=== PATIENT | female | born 1945 | race Caucasian/White ===

== ENCOUNTER → 2024-05-26 09:27 | Outpatient (REF) | payer MEDICARE, OTHER, SELFPAY | LOC: HWRAD 09:27 | PROVIDERS: ATTENDING PHYSICIAN Internal Medicine Rheumatology; FAMILY PHYSICIAN Internal Medicine | DX: M81.0 Age-related osteoporosis without current pathological fracture (principal) | CPT/HCPCS: 77080 ==

== ENCOUNTER 2024-08-17 14:23 | Emergency (ER) | payer MEDICARE, OTHER, SELFPAY ==
[2024-08-17 14:27] VITALS: BP 165/69
--- NOTE | 2024-08-17 15:57 | ED.GENMED ---
History of Present Illness
General
Chief Complaint: Skin Surface Trauma
Source: patient
Exam Limitations: none
Time Seen by Provider: 08/17/24 14:41
Nursing documentation reviewed up to this point in time: agreed with
History of Present Illness
History of Present Illness:
78-year-old female presenting to the emergency department today with concerns of a laceration to the left lower extremity after missing a step and hitting a slight corner of a step. Occurred just prior to arrival. Denies numbness weakness or
additional injuries. Unsure when her last tetanus shot was
Review of Systems
Review of Systems
Allergies reviewed?: Yes
All Other Systems: ROS reviewed and negative except as documented in HPI and ROS
Phy Exam
Physical Exam
Physical Exam:
GENERAL: Alert , in no apparent distress
EYE: pupils equal and reactive
NECK: Supple, no significant adenopathy.
ENT: o/p clr, mmm.
CARDIAC: Regular rate and rhythm .
LUNGS: Clear breath sounds bilaterally, no acute respiratory distress, no wheezes/rales/rhonchi
ABDOMEN: Soft, without focal tenderness, no r/g, no cvat
NEUROLOGICAL: Alert and oriented, no focal neuro deficits
SKIN: 10 cm laceration across the left anterior lower ferreira subcutaneous in depth. No foreign body seen. Warm and dry, skin intact.
MUSCULOSKELETAL: No edema, well perfused.
PSYCH: Normal and appropriate interaction.
Course
Orders/Labs/Results
Orders:
Orders
08/17/24 15:56
Tetanus/Diphth/Acelpertussis [Adacel] 0.5 ml IM .ONCE ONE
Vital Signs
Initial and Last Documented VS:
Initial Vital Signs
Temp Pulse Resp BP Pulse Ox
98.1 F 82 16 165/69 97
08/17/24 14:27 08/17/24 14:27 08/17/24 14:27 08/17/24 14:27 08/17/24 14:27
Last Documented Vital Signs
Temp Pulse Resp BP Pulse Ox
98.1 F 82 16 165/69 97
08/17/24 14:27 08/17/24 14:27 08/17/24 14:27 08/17/24 14:27 08/17/24 14:27
Procedures
Laceration Closure
Left Anterior Distal Leg:
Status of Wound: clean
Size of Wound in cm: 10
Description of Wound Edges: sharp
Preparation: cleaned with saline
Anesthesia: 1% Lidocaine with epi
Revision/Debridement: routine- no revision and irrigate-direct pressure
Wound exploration: explored to base- no FB and no tendon involvement
Type of Closure: single layer closure and interrupted sutures
Skin Closure Material: 4-0 nylon
Number of sutures: 12
MDM/Problems Addressed
MDM/Problems Addressed:
78-year-old female presenting to the emergency department after laceration to the left ferreira that occurred prior to arrival hitting a slight step. Denies additional injuries neurovascularly intact. Cleaned thoroughly and closed with 12 stitches
otherwise stable for discharge. Return precautions given.
*Critical Care Note
Total Time (30-74mins, 75-104mins- exclusive of procedures): Not Applicable
ED Attending Note
-
Portions of this chart may have been created with voice recognition software.� Occasional wrong word or��sound alike� substitutions may have occurred due to the inherent limitations of voice recognition software.
Discharge Plan
Departure
Patient Disposition: Home (Routine Discharge)
Date of Disposition: 08/17/24
Time of Disposition: 15:57
Patient with high blood pressure during this ER visit?: No
Condition: Good
Covid-19: Not Applicable
Discharge Problem:
Laceration of ferreira
Instructions: Laceration Repair With Stitches (DC)
Referrals:
Yumi Ndiaye, [Family Provider] -
Activity Restrictions/Additional Instructions:
You came to the emergency department today with concerns of a ferreira laceration. This was closed with 12 non dissolving stitches. Please follow-up in 12 to 14 days for suture removal. Return for any worsening, new or concerning symptoms.
Interventions
Interventions:
*Risk Screen - Suicide Last Done: 08/17/24 16:00
*General Assessment Last Done: 08/17/24 15:11
*Neglect/Abuse Screening Last Done: 08/17/24 15:11
*ED COVID-19 Vaccine History Last Done: 08/17/24 15:11
*Nursing Disposition Last Done: 08/17/24 16:00
ED-Skin Assessment Last Done: 08/17/24 15:11
Discharge Date and Time
Discharge Date/Time: 08/17/24 16:13
Print Language: OCCITAN
[2024-08-17] MEDS: ADACEL 0.5 ML IM (16:12)
== END 2024-08-17 16:13 | disposition home or self-care (01) ==
LOC: EMR 14:23
PROVIDERS: EMERGENCY PHYSICIAN Emergency Medicine; FAMILY PHYSICIAN Internal Medicine
DX: S81.812A Laceration without foreign body, left lower leg, initial encounter (principal); W22.09XA Striking against other stationary object, initial encounter; Z23 Encounter for immunization
CPT/HCPCS: 90471; 12004; 99282; 90715

== ENCOUNTER → 2024-10-13 07:54 | Outpatient (REF) | payer MEDICARE, OTHER, SELFPAY | LOC: WOUND 07:54 | PROVIDERS: ATTENDING PHYSICIAN Surgery; FAMILY PHYSICIAN Internal Medicine | DX: L97.322 Non-pressure chronic ulcer of left ankle with fat layer exposed (principal); I87.2 Venous insufficiency (chronic) (peripheral); I73.9 Peripheral vascular disease, unspecified; E66.3 Overweight | CPT/HCPCS: 11042; 99204 ==

== ENCOUNTER → 2024-10-20 13:12 | Outpatient (REF) | payer MEDICARE, OTHER, SELFPAY | LOC: WOUND 13:12 | PROVIDERS: ATTENDING PHYSICIAN Surgery; FAMILY PHYSICIAN Internal Medicine | DX: L97.322 Non-pressure chronic ulcer of left ankle with fat layer exposed (principal); I87.2 Venous insufficiency (chronic) (peripheral); I73.9 Peripheral vascular disease, unspecified; E66.3 Overweight | CPT/HCPCS: 11042 ==

== ENCOUNTER → 2024-10-24 08:50 | Outpatient (REF) | payer MEDICARE, OTHER, SELFPAY | LOC: RAD 08:50 | PROVIDERS: ATTENDING PHYSICIAN Surgery; FAMILY PHYSICIAN Internal Medicine | DX: L97.222 Non-pressure chronic ulcer of left calf with fat layer exposed (principal); I73.9 Peripheral vascular disease, unspecified; I87.2 Venous insufficiency (chronic) (peripheral) | CPT/HCPCS: 93922; 93971 ==

== ENCOUNTER → 2024-10-27 08:27 | Outpatient (REF) | payer MEDICARE, OTHER, SELFPAY | LOC: WOUND 08:27 | PROVIDERS: ATTENDING PHYSICIAN Surgery; FAMILY PHYSICIAN Internal Medicine | DX: L97.322 Non-pressure chronic ulcer of left ankle with fat layer exposed (principal); I87.2 Venous insufficiency (chronic) (peripheral); I73.9 Peripheral vascular disease, unspecified; E66.3 Overweight | CPT/HCPCS: 11042 ==

== ENCOUNTER → 2024-11-03 08:32 | Outpatient (REF) | payer MEDICARE, OTHER, SELFPAY | LOC: WOUND 08:32 | PROVIDERS: ATTENDING PHYSICIAN Surgery; FAMILY PHYSICIAN Internal Medicine | DX: L97.322 Non-pressure chronic ulcer of left ankle with fat layer exposed (principal); I87.2 Venous insufficiency (chronic) (peripheral); I73.9 Peripheral vascular disease, unspecified; E66.3 Overweight | CPT/HCPCS: 11042 ==

== ENCOUNTER → 2024-11-10 08:29 | Outpatient (REF) | payer MEDICARE, OTHER, SELFPAY | LOC: WOUND 08:29 | PROVIDERS: ATTENDING PHYSICIAN Surgery; FAMILY PHYSICIAN Internal Medicine | DX: L97.322 Non-pressure chronic ulcer of left ankle with fat layer exposed (principal); I87.2 Venous insufficiency (chronic) (peripheral); I73.9 Peripheral vascular disease, unspecified; E66.3 Overweight | CPT/HCPCS: 11042 ==

== ENCOUNTER → 2024-11-20 08:37 | Outpatient (REF) | payer MEDICARE, OTHER, SELFPAY | LOC: WOUND 08:37 | PROVIDERS: ATTENDING PHYSICIAN Surgery; FAMILY PHYSICIAN Internal Medicine | DX: L97.322 Non-pressure chronic ulcer of left ankle with fat layer exposed (principal); I87.2 Venous insufficiency (chronic) (peripheral); I73.9 Peripheral vascular disease, unspecified; E66.3 Overweight | CPT/HCPCS: 11042 ==

== ENCOUNTER → 2024-12-01 08:46 | Outpatient (REF) | payer MEDICARE, OTHER, SELFPAY | LOC: WOUND 08:46 | PROVIDERS: ATTENDING PHYSICIAN Surgery; FAMILY PHYSICIAN Internal Medicine | DX: L97.322 Non-pressure chronic ulcer of left ankle with fat layer exposed (principal); I87.2 Venous insufficiency (chronic) (peripheral); I73.9 Peripheral vascular disease, unspecified; E66.3 Overweight | CPT/HCPCS: 11042 ==

== ENCOUNTER → 2024-12-16 08:38 | Outpatient (REF) | payer MEDICARE, OTHER, SELFPAY | LOC: WOUND 08:38 | PROVIDERS: ATTENDING PHYSICIAN Surgery; FAMILY PHYSICIAN Internal Medicine | DX: L97.322 Non-pressure chronic ulcer of left ankle with fat layer exposed (principal); I87.2 Venous insufficiency (chronic) (peripheral); I73.9 Peripheral vascular disease, unspecified; E66.3 Overweight | CPT/HCPCS: 99213 ==

== ENCOUNTER → 2024-12-30 08:35 | Outpatient (REF) | payer MEDICARE, OTHER, SELFPAY | LOC: WOUND 08:35 | PROVIDERS: ATTENDING PHYSICIAN Surgery; FAMILY PHYSICIAN Internal Medicine | DX: L97.322 Non-pressure chronic ulcer of left ankle with fat layer exposed (principal); I87.2 Venous insufficiency (chronic) (peripheral); I73.9 Peripheral vascular disease, unspecified; E66.3 Overweight | CPT/HCPCS: 99212 ==